=== PATIENT | male | born 1985 | race Caucasian/White ===

== ENCOUNTER 2023-02-17 16:13 | Emergency (ER) | payer SELFPAY ==
[2023-02-17 17:43] LABS: ANION GAP 9.7 mmol/L (5-15); CHLORIDE,CL 107 mmol/L (98-107); SODIUM,NA 143 mmol/L (136-145)
[2023-02-17 17:44] LABS: ESTIMATED GFR 118 mL/min (>=60)
[2023-02-20 13:06] LABS: C.TRACHOMATIS BY TMA Negative (Negative); N.GONORRHOEAE BY TMA Negative (Negative)
== END 2023-02-17 18:50 | disposition home or self-care (01) ==
LOC: VM.ED 16:13
DX: R55 Syncope and collapse (principal); Z72.0 Tobacco use
CPT/HCPCS: 36415; 70450; 80053; 81001; 84484; 85025; 86140; 87491; 87591; 93005; 93010; 99284; 99285